=== PATIENT | male | born 1940 | race Caucasian/White ===

== ENCOUNTER → 2019-06-17 | Outpatient (CLI) | payer OTHER ==
[~2019-06-17] VITALS: Ht 170.2 cm; Wt 91.6 kg
[~2019-06-17] MED LIST: REGADENOSON 0.4 MG/5 ML PF SYG IVP SCH
== END | disposition home or self-care (01) ==
LOC: SHCH 07:56
PROVIDERS: ATTEND Internal Medicine Cardiovascular Disease
DX: I25.119 Atherosclerotic heart disease of native coronary artery with unspecified angina pectoris (principal)
CPT/HCPCS: 78452; 93017; 96374; A9500 ×2; J2785

== ENCOUNTER 2021-10-14 15:03 | Observation (INO) | payer OTHER ==
[~2021-10-14] VITALS: Ht 170.2 cm; Wt 88.9 kg
[2021-10-14] MEDS ORDERED: ONDANSETRON 4MG INJ IVP ONE (15:30)
[2021-10-14] MEDS ORDERED: NITROGLYCERIN 1GM OINT 1 INCH/1GM TD ONE (15:30)
[2021-10-14] MEDS ORDERED: ASPIRIN 325MG TAB PO ONE (15:30)
[2021-10-14 15:34] LABS: CREATININE 1.6 mg/dL (0.5-1.5)
[2021-10-14 15:38] LABS: ALBUMIN 3.3 g/dL (3.5-5.0); BILIRUBIN,TOTAL 0.9 mg/dL (0.2-1.0); TOTAL PROTEIN, SERUM 6.9 g/dL (6.0-8.3)
[2021-10-14 17:00] LABS: APPEARANCE,URINE Clear (CLEAR); BILIRUBIN,URINE Negative (NEGATIVE); COLOR,URINE Dark Yellow (YELLOW); GLUCOSE, URINE (UA) Negative (NEGATIVE); KETONES,URINE Trace mg/dL (NEGATIVE); LEUKOCYTE ESTERASE ,URINE Small (NEGATIVE); NITRATE,URINE Negative (NEGATIVE); OCCULT BLOOD,URINE Negative (NEGATIVE); PH,URINE 5.5 (5.0-8.0); PROTEIN,URINE Negative (NEGATIVE)
[2021-10-14 17:07] LABS: RBC,URINE 0-1 /HPF (0-1)
[2021-10-14 17:15] LABS: BACTERIA,URINE Rare /HPF (None Seen); SQUAMOUS EPITHELIAL CELL,UR Rare /HPF (0-2)
[2021-10-14 17:41] LABS: HEMOGLOBIN A1C 6.1 % (4.0-6.0)
[2021-10-14] MEDS: METOPROLOL TARTRATE 25 MG TAB PO SCH (21:21)
[2021-10-14] MEDS ORDERED: LISI10TA24 PO (21:52)
[2021-10-14] MEDS ORDERED: AEC81 PO (21:52)
[2021-10-14] MEDS ORDERED: ATOR40TA69 PO (21:52)
[2021-10-14] MEDS ORDERED: METO50TA18 PO (21:52)
[2021-10-15 02:47] LABS: BASOPHILS % (AUTO) 0.2 % (0.0-5.0); EOSINOPHILS % (AUTO) 1.8 % (0.0-8.0); HEMATOCRIT 50.1 % (42-54); LYMPHOCYTES % (AUTO) 32.6 % (21.0-51.0); MEAN CORPUSCULAR HEMOGLOBIN 30.4 pg (27.0-33.0); MEAN CORPUSCULAR HGB CONC 34.3 g/dL (32.0-36.0); MEAN CORPUSCULAR VOLUME 88.5 fL (79-99); MONOCYTES % (AUTO) 10.9 % (3.0-13.0); NEUTROPHILS % (AUTO) 54.2 % (40.0-77.0); PLATELET COUNT (AUTO) 144 K/uL (130-400); RED BLOOD CELL COUNT(AUTO) 5.66 MIL/uL (4.50-6.20); RED CELL DISTRIBUTION WIDTH 14.6 % (11.0-15.5); WHITE BLOOD COUNT (AUTO) 9.6 K/uL (4.8-10.8)
[2021-10-15 02:55] LABS: CREATININE 1.4 mg/dL (0.5-1.5); POTASSIUM 4.3 mmol/L (3.5-5.1)
[2021-10-15] MEDS: METOPROLOL TARTRATE 25 MG TAB PO SCH ×2 (08:38→20:15)
[2021-10-15] MEDS: ASPIRIN 81MG CHEW TAB PO SCH (08:38)
[2021-10-15] MEDS ORDERED: 0.9% NACL 500ML IV.SOLN 500 ML IV SCH (10:30)
[2021-10-15 13:00] VITALS: BP 118/62
[2021-10-15 14:22] LABS: INR 1.07 (0.85-1.15); PROTHROMBIN TIME 11.6 SEC (9.6-11.6)
[2021-10-15 14:23] LABS: PARTIAL THROMBOPLASTIN TIME 26.5 SEC (26.3-35.5)
[2021-10-15 16:00] VITALS: BP 118/69
[2021-10-15] MEDS ORDERED: IOHEXOL-350 50ML VIAL IV ONE (16:48)
[2021-10-15] MEDS ORDERED: NITROGLYCERIN 50MG VIAL ONE (16:48)
[2021-10-15] MEDS ORDERED: IOHEXOL 350 MG/ML 100ML INFUS..BTL IV ONE (16:48)
[2021-10-15] MEDS ORDERED: MIDAZOLAM HCL 1 MG/ML 2ML VIAL ONE (16:49)
[2021-10-15] MEDS ORDERED: LIDOCAINE HCL 400MG/20ML VIAL ONE (16:49)
[2021-10-15] MEDS ORDERED: FENTANYL CITRATE PF 50 MCG/1 ML 2ML VIAL ONE (16:49)
[2021-10-15 18:19] VITALS: BP 132/77
[2021-10-15 18:30] VITALS: BP 148/92
[2021-10-15 19:40] VITALS: BP 127/77
[2021-10-15 23:19] VITALS: BP 127/74
[2021-10-16 03:14] VITALS: BP 119/68
[2021-10-16 03:37] LABS: HEMATOCRIT 51.9 % (42-54); MEAN CORPUSCULAR HEMOGLOBIN 29.5 pg (27.0-33.0); MEAN CORPUSCULAR HGB CONC 32.8 g/dL (32.0-36.0); MEAN CORPUSCULAR VOLUME 89.9 fL (79-99); RED BLOOD CELL COUNT(AUTO) 5.77 MIL/uL (4.50-6.20); RED CELL DISTRIBUTION WIDTH 14.5 % (11.0-15.5); WHITE BLOOD COUNT (AUTO) 10.7 K/uL (4.8-10.8)
[2021-10-16 03:47] LABS: CREATININE 1.5 mg/dL (0.5-1.5); POTASSIUM 4.1 mmol/L (3.5-5.1)
[2021-10-16] MEDS: METOPROLOL TARTRATE 25 MG TAB PO SCH (08:21)
[2021-10-16] MEDS: ASPIRIN 81MG CHEW TAB PO SCH (08:21)
[2021-10-16 08:55] VITALS: BP 149/83
== END 2021-10-16 10:42 | disposition home or self-care (01) ==
LOC: EDH 15:03 → EDHIP 17:12 → 2BH 10-15 12:33 → 2AH 10-15 19:27
PROVIDERS: ADMIT Internal Medicine; ATTEND Internal Medicine
DX: R07.89 Other chest pain (principal); I25.10 Atherosclerotic heart disease of native coronary artery without angina pectoris; I12.9 Hypertensive chronic kidney disease with stage 1 through stage 4 chronic kidney disease, or unspecified chronic kidney disease; N18.32 Chronic kidney disease, stage 3b; I25.119 Atherosclerotic heart disease of native coronary artery with unspecified angina pectoris; E78.5 Hyperlipidemia, unspecified; E66.9 Obesity, unspecified; E78.00 Pure hypercholesterolemia, unspecified; G47.33 Obstructive sleep apnea (adult) (pediatric); I24.9 Acute ischemic heart disease, unspecified; I35.0 Nonrheumatic aortic (valve) stenosis; I45.10 Unspecified right bundle-branch block; R10.11 Right upper quadrant pain; Z95.5 Presence of coronary angioplasty implant and graft; Z79.899 Other long term (current) drug therapy; Z98.890 Other specified postprocedural states; Z79.82 Long term (current) use of aspirin; Z68.30 Body mass index [BMI] 30.0-30.9, adult
CPT/HCPCS: 36415 ×3; 71045; 76705; 80048 ×2; 80053; 80061; 81001; 82550; 83036; 83880; 84443; 84484 ×3; 85025; 85027; 85610; 85730 ×2; 93005; 93458; 96374; 99285; C1760; C1769; C1894; G0378 ×39; J1644; J2405; J3490 ×2; Q9965; Q9967 ×2; J2250; J3010

== ENCOUNTER → 2022-10-04 | Outpatient (CLI) | payer MEDICARE ==
[~2022-10-04] MED LIST changes: +AEC81 PO; +ATOR40TA69 PO; +LISI10TA24 PO; +METO50TA18 PO; -REGADENOSON 0.4 MG/5 ML PF SYG IVP SCH
[2022-10-04 12:44] LABS: CREATININE 1.5 mg/dL (0.5-1.5); MAGNESIUM 2.1 mg/dL (1.80-2.40); POTASSIUM 4.5 mmol/L (3.5-5.1)
== END | disposition home or self-care (01) ==
LOC: LAB 10:32
PROVIDERS: ATTEND Internal Medicine Cardiovascular Disease
DX: I25.119 Atherosclerotic heart disease of native coronary artery with unspecified angina pectoris (principal); I10 Essential (primary) hypertension; R06.00 Dyspnea, unspecified
CPT/HCPCS: 36415; 80048; 83735; 83880